=== PATIENT | male | born 1940 | race Caucasian/White ===

== ENCOUNTER 2016-06-19 11:57 | Emergency (ER) | payer OTHER ==
[2016-06-19 12:13] VITALS: BP 190/109
--- NOTE | 2016-06-19 13:13 | RAD ---
INDICATION: Hip and joint pain. Abdominal mass. COMPARISON: None TECHNIQUE: Noncontrast axial source images were acquired from the level hemidiaphragms to the symphysis pubis. Lung bases: The lung bases are clear. Liver: The liver is normal in size. Noncontrast imaging shows no evidence of a hepatic mass or ductal dilatation. Gallbladder: There are no calcified gallstones. There is no evidence of wall thickening or pericholecystic fluid.. Spleen: The spleen is normal in size. The noncontrast CT appearance is normal. Pancreas: Noncontrast imaging shows no pancreatic mass or ductal dilitation. Adrenal glands: No masses are identified. Kidneys/Bladder: There is no evidence of nephrolithiasis or CT evidence of hydronephrosis. Noncontrast imaging shows an incompletely characterized 1.2 cm left renal hypodensity, likely a cyst. The bladder is unremarkable.. Adenopathy: There is no evidence of intraperitoneal or retroperitoneal adenopathy. Evaluation is limited without oral contrast. Fluid collections: There are no free or localized fluid collections. Vessels: There is a fusiform 6.5 x 6.8 cm aneurysm of the infrarenal abdominal aorta originating approximately 1 cm below the renal arteries. There are multiple right-sided renal arteries. There is no CT evidence to suggest that this represents a leaking aneurysm. There are advanced intimal calcifications involving the iliac vessels which are normal in caliber Pelvic organs: The prostate is enlarged GI tract: Evaluation of the bowel is limited without oral contrast. The stomach, small bowel, and lower GI tract appear grossly normal. There are no obstructive findings. Soft tissues: No soft tissue abnormalities of the extraperitoneal abdomen or pelvis are identified. Osseous structures: There are no acute osseous findings. There is a vertebral cleft involving L1. This is believed to represent an incidental finding. 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 FINDINGS CALLED TO REFERRING CLINICIAN.
--- NOTE | 2016-06-19 13:44 | UC ---
Priscilla Bahena Auryana, scribed for Erik Stone MD on 06/19/16 at 1207 . Back Pain HPI - HPI Summary HPI Summary: 76 year old male presents with right lower back pain starting 3 week ago and has gradually been getting worse. He reports that the pain is at its worst in the morning. He states the pain in stabbing pain that radiates from the right lower back to the right front upper hip and groin. He states the right testicle has also been tender recently. Patient states that he has improved his overall health - started exercising more, quit smoking, and has lost weight (50 lbs over the last 5 years). He states that he doesn't often visit the physician. [employer] alprazolam. Patient states that he has had similar episodes of back pain but this is much worse. PMHx is significant for DM but denies any surgeries. - History of Current Complaint Stated Complaint: BACK PAIN Time Seen by Provider: 06/19/16 12:05 Hx Obtained From: Patient Onset/Duration: Gradual Onset, Lasting Weeks - 3, Still Present, Worse Since - progressively worse Timing: Constant Severity Initially: Mild Severity Currently: Moderate Back Pain: Is Discrete @ - right lower back, Radiates To - right lip and groin Character: Sharp Aggravating: Movement Associated Signs And Symptoms: Positive: Other - right testicle tenderness Related History: Similar Episode Dx As - see HPI - Allergies/Home Medications Allergies/Adverse Reactions: Allergies Allergy/AdvReac Type Severity Reaction Status Date / Time No Known Allergies Allergy Verified 03/31/12 11:22 PMH/Surg Hx/FS Hx/Imm Hx Endocrine History Of: Reports: Diabetes - under control Denies: Thyroid Disease Cardiovascular History Of: Denies: Cardiac Disorders, Hypertension Respiratory History Of: Reports: COPD Denies: Asthma GI/ History Of: Denies: Ulcer - Surgical History Surgical History: None - Social History Occupation: Retired Lives: Alone Alcohol Use: None Substance Use Type: None Review of Systems Constitutional: Negative Skin: Negative Eyes: Negative ENT: Negative Respiratory: Negative Cardiovascular: Negative Gastrointestinal: Negative Genitourinary: Other - right testicle tenderness Motor: Negative Neurovascular: Negative Musculoskeletal: Myalgia - right lower back pain that radiates to the right hip/ groin Neurological: Negative Psychological: Negative All Other Systems Reviewed And Are Negative: Yes Physical Exam Triage Information Reviewed: Yes Appearance: No Pain Distress, Well-Nourished Vital Signs: Initial Vital Signs Temp 97.2 F 06/19/16 12:06 Pulse 93 06/19/16 12:06 Resp 18 06/19/16 12:06 BP 190/109 06/19/16 12:06 Pulse Ox 98 06/19/16 12:06 Vital Signs Reviewed: Yes Eyes: Positive: Conjunctiva Clear Neck: Positive: Supple Respiratory: Positive: Lungs clear Cardiovascular: Positive: RRR Abdomen Description: Positive: Nontender, Soft, Other: - prominent palpable aorta Bowel Sounds: Positive: Present Musculoskeletal: Positive: Strength Intact, ROM Intact, Other: - tender in the right SI; non tender in inguinal areas Neurological: Positive: Alert Psychological: Positive: Age Appropriate Behavior - Additional Comments normal non-tender testicular examination Diagnostics - Radiology CT ABD/PEL without Contrast Xray Interpretation: Positive (See Comments) - IMPRESSION: 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 FINDINGS CALLED TO REFERRING CLINICIAN. Radiology Interpretation Completed By: Radiologist Re-Evaluation - Re-Evaluation First Eval Re-Evaluation Time: 13:22 - discuss results of CT ABD/PEL and discharge with F/ U plan Change: Unchanged Back Pain Course/Dx - Course Course Of Treatment: DICUSSED CT RESULTS WITH PATIENT. HE AGREED TO F/U TODAY FOR THE ANEURYSM. - Differential Dx/Diagnosis Provider Diagnoses: LOW BACK PAIN, PRIMARILY AT THE RT SI JOINT, WITH RADIATION TO THE RT INGUINAL AREA. THIS DOES NOT APPEAR TO BE DUE TO THE AAA AT THIS TIME. 6.8 CM ABDOMINAL AORTIC ANEURYSM WITHOUT SIGNS OF LEAKAGE. THIS NEEDS URGENT FOLLOW UP. PATIENT HAS AGREED TO FOLLOW UP WITH [facility] BECAUSE, THEY HAVE VASCULAR SURGERY. HE KNOWS TO SEEK IMMEDIATE MEDICAL CARE IF HE HAS ANY ABDOMINAL PAIN. Discharge - Discharge Plan Condition: Stable Disposition: HOME Patient Education Materials: Abdominal Aortic Aneurysm Repair (ED), Back Pain ( ED) Referrals: [facility] [Provider Group] No Primary Care Phys,[facility]OP[facility] [Primary Care Provider] - Additional Instructions: FOLLOW UP WITH YOUR DOCTOR. CALL [facility] TODAY, 06/19/16, TO FOLLOW UP WITH A VASCULAR SURGEON FOR YOUR ENLARGED ABDOMINAL AORTIC ANEURYSM. GO THE EMERGENCY DEPARTMENT WITH ANY WORSENING OF YOUR CONDITION; PAIN, WEAKNESS , YOU FEEL ILL OR QUESTIONS OR CONCERNS. The documentation as recorded by the Priscilla ashraf Auryana accurately reflects the service I personally performed and the decisions made by me, Erik Stone MD.
[2016-06-19 19:03] LABS: Hematocrit 47 % (42-52); Hemoglobin 15.4 g/dl (14.0-18.0); Mean Corpuscular HGB Conc 33 g/dl (31-36); Mean Corpuscular Hemoglobin 31 pg (27-31); Mean Corpuscular Volume 94 fL (80-94); Mean Platelet Volume 9 um3 (7.4-10.4); Red Blood Count 4.99 10^6/ul (4.0-5.4); Red Cell Distribution Width 13 % (10.5-15); White Blood Count 10.7 10^3/ul (3.5-10.8)
[2016-06-19 19:26] LABS: Albumin 4.8 g/dL (3.2-5.2); BUN/Creatinine Ratio 15.5 (8-20); Calcium 10.8 mg/dL (8.6-10.3); EGFR African American 97.3 (>60); EGFR Non-African American 75.7 (>60); Potassium 4.1 mmol/L (3.5-5.0); Total Bilirubin 0.8 mg/dL (0.2-1.0); Total Protein 7.8 g/dL (6.4-8.9)
== END 2016-06-19 14:00 | disposition home or self-care (01) ==
LOC: UCEAST 11:57
DX: M54.5 Low back pain (principal); I71.4 Abdominal aortic aneurysm, without rupture; E11.9 Type 2 diabetes mellitus without complications; J44.9 Chronic obstructive pulmonary disease, unspecified
CPT/HCPCS: 36415; 74176; 80053; 85025; 99212; G0463